=== PATIENT | female | born 1985 | race Caucasian/White ===

== ENCOUNTER → 2016-10-27 | Outpatient (CLI) | payer OTHER ==
--- NOTE | 2016-10-27 12:46 | US ---
EXAMINATION TYPE: US kidneys/renal and bladder DATE OF EXAM: 10/27/2016 9:27 AM COMPARISON: NONE CLINICAL HISTORY: 31-year-old female R10.30 Lower abdominal pain. TECHNIQUE: Multiple sonographic images of the kidneys and bladder were obtained. FINDINGS: Right Kidney: 11.2 x 4.3 x 4.8 cm with mild pelvicaliectasis. Left Kidney: 11.5 x 4.8 x 4.4 cm without hydronephrosis. No gross abnormality of the urine distended bladder. Both ureteral jets are visualized. IMPRESSION: Mild right-sided pelvicaliectasis which may be transient. Follow-up as clinically indicated. Both ure teral jets are visualized.
== END | disposition home or self-care (01) ==
LOC: RADUSWWP 09:08
PROVIDERS: ATTEND Internal Medicine
DX: N28.89 Other specified disorders of kidney and ureter (principal); R10.30 Lower abdominal pain, unspecified
CPT/HCPCS: 76770

== ENCOUNTER → 2016-11-07 | Outpatient (CLI) | payer OTHER ==
--- NOTE | 2016-11-07 12:50 | CT ---
EXAMINATION TYPE: CT abdomen pelvis wo con DATE OF EXAM: 11/07/2016 12:23 PM COMPARISON: Previous ultrasound dated 10/27/2016 HISTORY: Abn US CT DLP: 1136 mGycm Automated exposure control for dose reduction was used. FINDINGS: Visualized portions of the lungs are clear. There is no pleural or pericardial fluid. Within the abdomen, the liver, spleen and gallbladder are normal. Both adrenal glands are normal. The pancreas is unremarkable. There is no evidence of hydronephrosis or nephrolithiasis. There is no evidence of ureterolithiasis. There is a 2 cm right ovarian cyst. There are follicular changes in the left ovary. The uterus is unr emarkable. The bladder is not distended but is otherwise normal. There is no significant diverticular change and I see no radiographic evidence of diverticulitis. The re is some mild colonic wall thickening involving the transverse colon. The appendix is normal. There is no free fluid and no free air. Small bowel loops are normal. There is a small umbilical hernia containing fat only. The most measures 12 mm. Osseous structures are unremarkable. IMPRESSION: 1. NO EVIDENCE OF NEPHROLITHIASIS OR HYDRONEPHROSIS. 2. MILD THICKENING OF THE TRANSVERSE COLON. PLEASE CORRELATE TO EXCLUDE COLITIS. 3. 2 CM, RIGHT OVARIAN CYST.
== END | disposition home or self-care (01) ==
LOC: RADCTMAIN 12:00
PROVIDERS: ATTEND Urology
DX: N83.201 Unspecified ovarian cyst, right side (principal); K59.8 Other specified functional intestinal disorders; N13.30 Unspecified hydronephrosis
CPT/HCPCS: 74176

== ENCOUNTER → 2024-01-06 | Outpatient (CLI) | payer OTHER ==
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
== END | disposition home or self-care (01) ==
LOC: RADUSWWP 06:53
PROVIDERS: ATTEND Internal Medicine
DX: N83.201 Unspecified ovarian cyst, right side (principal)
CPT/HCPCS: 76856; 93976

== ENCOUNTER 2024-01-07 18:08 | Emergency (ER) | payer OTHER ==
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
[2024-01-07 18:50] VITALS: PULSE 79; RESP 18; TEMP 98.2
[2024-01-07] MEDS: ACETAMINOPHEN TAB 500 MG TAB PO STA (19:14)
[2024-01-07] MEDS: ONDANSETRON ODT 4 MG TAB PO STA (19:15)
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
[2024-01-07 21:51] VITALS: BP 108/74
== END 2024-01-07 21:38 | disposition home or self-care (01) ==
LOC: EC 18:08
DX: S43.004A Unspecified dislocation of right shoulder joint, initial encounter (principal); S43.005A Unspecified dislocation of left shoulder joint, initial encounter; M54.6 Pain in thoracic spine; M54.2 Cervicalgia; V49.40XA Driver injured in collision with unspecified motor vehicles in traffic accident, initial encounter; Y92.410 Unspecified street and highway as the place of occurrence of the external cause
CPT/HCPCS: 72050; 72070; 72170; 99284

== ENCOUNTER → 2024-03-02 | Outpatient (CLI) | payer OTHER ==
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
== END | disposition home or self-care (01) ==
LOC: RADUSWWP 07:44
PROVIDERS: ATTEND Internal Medicine
DX: N83.201 Unspecified ovarian cyst, right side (principal)
CPT/HCPCS: 76856